=== PATIENT | female | born 1935 | race African-American/Black ===

== ENCOUNTER 2018-01-22 10:31 | Emergency (ER) | payer OTHER ==
[~2018-01-22] VITALS: Ht 160 cm; Wt 51.0 kg
[~2018-01-22 10:31] MED LIST: ACET325T14 PO; AMIO200T42 PO; DARB60VI SQ; OXYC20TA2 PO; PANT40TA5 PO; SPIR25TA PO; ZOLP-413 PO
[2018-01-22 10:36] VITALS: BP 108/66
[2018-01-22 12:34] LABS: BASOPHILS # (AUTO) 0.01 x10^3/uL (0-0.1); BASOPHILS % (AUTO) 0 % (0-1); EOSINOPHILS # (AUTO) 0.02 x10^3/uL (0-0.4); EOSINOPHILS % (AUTO) 0 % (1-7); LYMPHOCYTES # (AUTO) 0.92 x10^3/uL (1-3.4); LYMPHOCYTES % (AUTO) 10 % (22-44); MD NO; MEAN CORPUSCULAR HEMOGLOBIN 27.5 pg (27.0-34.8); MEAN CORPUSCULAR HGB CONC 32.8 g/dL (32.4-35.8); MEAN CORPUSCULAR VOLUME 83.9 fL (80-100); MEAN PLATELET VOLUME 9.6 fL (7.4-10.4); MONOCYTES % (AUTO) 6 % (2-9); NEUTROPHILS # (AUTO) 7.72 x10^3/uL (1.8-6.8); NEUTROPHILS % (AUTO) 84 % (42-75); PLATELET COUNT 289 x10^3/uL (130-400); RED BLOOD COUNT 4.09 x10^6/uL (3.82-5.3); RED CELL DISTRIBUTION WIDTH 15.4 % (9.6-15.2)
[2018-01-22 12:36] LABS: ALBUMIN 3.1 g/dL (3.4-5.0); ANION GAP 5 mmol/L (5-15); CALCIUM 9.2 mg/dL (8.5-10.1); CHLORIDE 108 mmol/L (98-107); CREATININE 1.73 mg/dL (0.55-1.02)
[2018-01-22 12:40] LABS: TROPONIN I < 0.015 ng/mL (0.000-0.045)
[2018-01-22] MEDS ORDERED: SODIUM CHLORIDE 0.9% 1,000ML IVBOLUS ONE (13:00)
[2018-01-22] MEDS ORDERED: SODIUM CHLORIDE FLUSH 10ML SYR IVF ONE (13:00)
[2018-01-22 13:07] LABS: MICROSCOPIC AUTO
[2018-01-22 13:09] LABS: CULTURE INDICATED? NO
== END 2018-01-22 14:30 | disposition home or self-care (01) ==
LOC: ED 14:00
DX: E86.0 Dehydration (principal); Z88.0 Allergy status to penicillin; J44.9 Chronic obstructive pulmonary disease, unspecified; M19.90 Unspecified osteoarthritis, unspecified site
CPT/HCPCS: 36415; 80048; 81001; 82040; 84484; 85025; 93005; 99285

== ENCOUNTER 2020-04-30 05:35 | Observation (INO) | payer MEDICARE, OTHER ==
[~2020-04-30] VITALS: Ht 160 cm; Wt 46.6 kg
[~2020-04-30 05:35] MED LIST changes: +FURO20TA3 PO; -PANT40TA5 PO; +PANT40TA6 PO
--- NOTE | 2020-04-30 06:02 | NUR ---
PT DHARMESH GARCIA WITH C/O DIZZINESS, PT STATES THAT SHE TRIPPED GETTING OUT OF CAR YESTERDAY AND HIT HER HEAD NO LOC, THIS AM PT STATES SHE GOT UP AND HAD TO SIT ON FLOOR BECAUSE SHE THOUGHT SHE WAS GOING TO FAINT, PT THEN CALLEDEMS, PT PLACED ON ALL MONITORS, WARM BLANKETS APPLIED AND BEAR PAW FOR WARMTH, TO CT AT THIS TIME
[2020-04-30 06:16] LABS: INTERNATIONAL NORMALIZED RATIO 1.19 (0.93-1.1); PROTHROMBIN TIME 12.3 Seconds (9.6-11.5)
[2020-04-30 06:17] LABS: ALANINE AMINOTRANSFERASE 18 U/L (12-78); ALBUMIN 2.5 g/dL (3.4-5.0); ANION GAP 8 mmol/L (5-15); CALCIUM 9.8 mg/dL (8.5-10.1); CHLORIDE 112 mmol/L (98-107); CREATININE 1.71 mg/dL (0.55-1.02)
[2020-04-30 06:19] LABS: ALKALINE PHOSPHATASE 65 U/L (45-117); BILIRUBIN,TOTAL 0.7 mg/dL (0.2-1.0); TOTAL PROTEIN 6.3 g/dL (6.4-8.2)
[2020-04-30 06:22] LABS: BASOPHILS # (AUTO) 0.06 x10^3/uL (0-0.1); BASOPHILS % (AUTO) 1 % (0-1); EOSINOPHILS # (AUTO) 0.01 x10^3/uL (0-0.4); EOSINOPHILS % (AUTO) 0 % (1-7); LYMPHOCYTES # (AUTO) 1.22 x10^3/uL (1-3.4); LYMPHOCYTES % (AUTO) 18 % (22-44); MD NO; MEAN CORPUSCULAR HEMOGLOBIN 29.2 pg (27.0-34.8); MEAN CORPUSCULAR HGB CONC 31.6 g/dL (32.4-35.8); MONOCYTES # (AUTO) 0.34 x10^3/uL (0.2-0.8); MONOCYTES % (AUTO) 5 % (2-9); NEUTROPHILS # (AUTO) 5.32 x10^3/uL (1.8-6.8); NEUTROPHILS % (AUTO) 77 % (42-75); PLATELET COUNT 231 x10^3/uL (130-400); RED CELL DISTRIBUTION WIDTH 17.1 % (9.6-15.2)
--- NOTE | 2020-04-30 06:40 | NUR ---
IN AND OUT CATH, UA SENT TO LAB PT IN NAD
--- NOTE | 2020-04-30 06:51 | NUR ---
REPORT TO [facility]
[2020-04-30 07:22] LABS: MICROSCOPIC NOT IND
[2020-04-30 09:05] VITALS: BP 101/62
[2020-04-30] MEDS ORDERED: ONDANSETRON 2MG/ML, 2ML IVPush PRN (11:00)
[2020-04-30] MEDS ORDERED: ONDANSETRON ODT 4 MG PO PRN (11:00)
[2020-04-30] MEDS ORDERED: LABETALOL 5MG/ML, 20ML IVPush PRN (11:00)
[2020-04-30] MEDS ORDERED: DOCUSATE 100 MG CAPSULE PO PRN (11:00)
[2020-04-30] MEDS ORDERED: LACTULOSE 10 GM/15 ML UDC PO PRN (11:00)
[2020-04-30] MEDS ORDERED: FUROSEMIDE 20 MG TABLET PO SCH (11:30)
[2020-04-30] MEDS ORDERED: ZOLPIDEM 5MG TABLET PO PRN (11:30)
[2020-04-30] MEDS ORDERED: SODIUM CHLORIDE 0.9%, 500ML IVBOLUS ONE (12:00)
[2020-04-30 12:38] VITALS: BP 100/68
[2020-04-30 12:39] VITALS: BP 89/59
[2020-04-30 12:40] VITALS: BP 78/52
[2020-04-30] MEDS: AMIODARONE 200 MG TABLET PO SCH (12:50)
[2020-04-30] MEDS: HEPARIN 5,000 UNITS/ML, 1ML SQ SCH ×2 (12:50→21:11)
--- NOTE | 2020-04-30 13:12 | NUR ---
D/C REC: Home with Addendum: 04/30/20 at 1313 by Marion MUSE Amended: Links added.
[2020-04-30 14:16] LABS: CLOSTRIDIUM DIFFICILE ANTIGEN POSITIVE; CLOSTRIDIUM DIFFICILE TOXIN NEGATIVE (Negative)
[2020-04-30] MEDS: ACETAMINOPHEN 325 MG TABLET PO PRN (14:36)
[2020-04-30] MEDS: VANCOMYCIN 50 MG/ML ORAL SUSP PO SCH ×2 (15:02→21:11)
[2020-04-30 18:58] VITALS: BP 109/67
[2020-04-30 19:44] LABS: TROPONIN I 0.078 ng/mL (0.000-0.045)
[2020-05-01 01:17] VITALS: BP 100/59
[2020-05-01] MEDS: VANCOMYCIN 50 MG/ML ORAL SUSP PO SCH ×4 (03:13→20:51)
[2020-05-01] MEDS: HEPARIN 5,000 UNITS/ML, 1ML SQ SCH ×3 (05:07→20:51)
[2020-05-01 07:22] VITALS: BP 95/60
[2020-05-01] MEDS: AMIODARONE 200 MG TABLET PO SCH (08:57)
[2020-05-01] MEDS: SENNA/DOCUSATE TABLET PO SCH (09:00)
[2020-05-01 12:23] VITALS: BP 96/64
[2020-05-01] MEDS: ALBUTEROL HFA 90 MCG/SPRAY INH PRN (15:40)
[2020-05-01] MEDS: ACETAMINOPHEN 325 MG TABLET PO PRN (17:06)
[2020-05-01 19:10] VITALS: BP 95/51
[2020-05-02 01:50] VITALS: BP 95/60
[2020-05-02] MEDS: VANCOMYCIN 50 MG/ML ORAL SUSP PO SCH ×4 (01:51→20:58)
[2020-05-02] MEDS: HEPARIN 5,000 UNITS/ML, 1ML SQ SCH ×3 (05:55→21:00)
[2020-05-02 06:17] VITALS: BP 95/58
[2020-05-02] MEDS: AMIODARONE 200 MG TABLET PO SCH (08:53)
[2020-05-02] MEDS: ALBUTEROL HFA 90 MCG/SPRAY INH PRN ×2 (08:53→21:36)
[2020-05-02] MEDS: SENNA/DOCUSATE TABLET PO SCH (09:34)
[2020-05-02 12:47] VITALS: BP 103/64
[2020-05-02 14:05] LABS: BASOPHILS % (AUTO) 0 % (0-1); EOSINOPHILS # (AUTO) 0.01 x10^3/uL (0-0.4); EOSINOPHILS % (AUTO) 0 % (1-7); LYMPHOCYTES # (AUTO) 1.03 x10^3/uL (1-3.4); LYMPHOCYTES % (AUTO) 18 % (22-44); MD NO; MEAN CORPUSCULAR HEMOGLOBIN 29.5 pg (27.0-34.8); MEAN CORPUSCULAR HGB CONC 32.1 g/dL (32.4-35.8); MEAN PLATELET VOLUME 8.6 fL (7.4-10.4); MONOCYTES % (AUTO) 3 % (2-9); NEUTROPHILS # (AUTO) 4.46 x10^3/uL (1.8-6.8); NEUTROPHILS % (AUTO) 78 % (42-75); PLATELET COUNT 251 x10^3/uL (130-400); RED CELL DISTRIBUTION WIDTH 16.6 % (9.6-15.2)
[2020-05-02 14:08] LABS: ANION GAP 6 mmol/L (5-15); CHLORIDE 113 mmol/L (98-107); CREATININE 1.62 mg/dL (0.55-1.02)
[2020-05-02] MEDS ORDERED: VANC1VIA3 PO (15:00)
[2020-05-02 21:03] VITALS: BP 88/51
[2020-05-02 21:06] VITALS: BP 104/68
[2020-05-03 00:57] VITALS: BP 97/63
[2020-05-03] MEDS: VANCOMYCIN 50 MG/ML ORAL SUSP PO SCH ×2 (03:09→08:21)
[2020-05-03] MEDS: HEPARIN 5,000 UNITS/ML, 1ML SQ SCH (06:20)
[2020-05-03] MEDS: ALBUTEROL HFA 90 MCG/SPRAY INH PRN (08:21)
[2020-05-03] MEDS: AMIODARONE 200 MG TABLET PO SCH (08:21)
[2020-05-03] MEDS: SENNA/DOCUSATE TABLET PO SCH (09:00)
[2020-05-03 09:02] VITALS: BP 106/63
== END 2020-05-03 14:13 | disposition home or self-care (01) ==
LOC: ED 06:55 → INTOOBSV 07:31 → EDIP 07:31 → 4WST 08:54
PROVIDERS: ADMIT Family Medicine; ATTEND Family Medicine
DX: I95.1 Orthostatic hypotension (principal); N18.9 Chronic kidney disease, unspecified; S06.0X9A Concussion with loss of consciousness of unspecified duration, initial encounter; A04.72 Enterocolitis due to Clostridium difficile, not specified as recurrent; I48.0 Paroxysmal atrial fibrillation; Q38.2 Macroglossia; E46 Unspecified protein-calorie malnutrition; R53.81 Other malaise; J44.9 Chronic obstructive pulmonary disease, unspecified; D63.1 Anemia in chronic kidney disease; R79.89 Other specified abnormal findings of blood chemistry; E85.9 Amyloidosis, unspecified; G89.29 Other chronic pain; M54.2 Cervicalgia; I31.3 Pericardial effusion (noninflammatory); J98.11 Atelectasis; I07.1 Rheumatic tricuspid insufficiency; E86.9 Volume depletion, unspecified; Z79.899 Other long term (current) drug therapy; Z88.0 Allergy status to penicillin; Z87.891 Personal history of nicotine dependence; Z66 Do not resuscitate; W18.30XA Fall on same level, unspecified, initial encounter; Y93.89 Activity, other specified; Y92.89 Other specified places as the place of occurrence of the external cause
CPT/HCPCS: 36415; 70450; 71045; 72125; 80048; 80053; 81003; 83036; 83735; 84100; 84484; 85025; 85610; 85730; 87324; 87493; 92610; 93005; 93306; 93880; 94640; 96372; 97116; 97161; 97530; 99285; G0378; J1644; J3370; J7040